=== PATIENT | female | born 1970 | race Hispanic/Latino ===

== ENCOUNTER 2017-11-23 09:35 | Emergency (ER) | payer OTHER ==
[~2017-11-23] VITALS: Ht 167.6 cm; Wt 104.3 kg
[2017-11-23 10:26] LABS: CLARITY,URINE CLOUDY (CLEAR); COLOR,URINE AMBER (YELLOW)
[2017-11-23 10:27] LABS: BILIRUBIN,URINE 1+ (NEGATIVE); KETONES,URINE TRACE (NEGATIVE); LEUKOCYTE ESTERASE ,URINE NEGATIVE (NEGATIVE); NITRITE,URINE NEGATIVE (NEGATIVE); PROTEIN,URINE DIPSTICK 1+ (NEGATIVE); URINE UROBILINOGEN 0.2 mg/dL (0.2 - 1)
[2017-11-23] MEDS ORDERED: MORPHINE SULFATE 4 MG/ML SYR IV STA (10:32)
[2017-11-23] MEDS ORDERED: ONDANSETRON HCL INJ 2 MG/ML VIAL IV STA (10:32)
[2017-11-23] MEDS ORDERED: SODIUM CHLORIDE 0.9% 1000ML 1,000 ML IV STA (10:32)
[2017-11-23 10:38] LABS: BASOPHILS % 0.4 % (0.0-1.0); EOSINOPHILS # (AUTO) 0.1 (0.0-0.4); EOSINOPHILS % 0.6 % (0.0-6.0); HEMATOCRIT 33.7 % (34.2-44.1); LYMPHOCYTES # (AUTO) 2.5 (1.0-3.2); LYMPHOCYTES % 26.2 % (18.0-39.1); MEAN CORPUSCULAR HEMOGLOBIN 27.8 pg (28-32); MEAN CORPUSCULAR HGB CONC 32.6 g/dL (31-35); MEAN CORPUSCULAR VOLUME 85.1 fL (81-99); MONOCYTES # (AUTO) 0.4 (0.2-0.8); MONOCYTES % 4.3 % (4.4-11.3); NEUTROPHILS # (AUTO) 6.6 (2.1-6.9); NEUTROPHILS % 68.3 % (38.7-80.0); PLATELET COUNT 255 x10e3/uL (140-360); RED BLOOD COUNT 3.96 x10e6/uL (3.6-5.1); RED CELL DISTRIBUTION WIDTH 14.1 % (11.7-14.4)
[2017-11-23 10:43] LABS: BACTERIA,URINE RARE /HPF; RBC,URINE 21-50 /HPF (0-5)
[2017-11-23] MEDS ORDERED: CEFTRIAXONE SOD 1 GM VIAL IV SCH (10:45)
[2017-11-23 10:50] LABS: ALANINE AMINOTRANSFERASE 18 IU/L (0-55); ALBUMIN 3.6 g/dL (3.5-5.0); ALKALINE PHOSPHATASE 59 IU/L (40-150); ANION GAP 11.9 mmol/L (8-16); BLOOD UREA NITROGEN 13 mg/dL (7-26); BUN/CREATININE RATIO 13 (6-25); CALCIUM 9.4 mg/dL (8.4-10.2); CARBON DIOXIDE 24 mmol/L (22-29); CHLORIDE 102 mmol/L (98-107); CREATININE, SERUM 0.97 mg/dL (0.57-1.11); EST GLOMERULAR FILTRATION RATE > 60 ML/MIN (60-); GLUCOSE 204 mg/dL (74-118); POTASSIUM 3.9 mmol/L (3.5-5.1); SODIUM 134 mmol/L (136-145)
[2017-11-23 10:54] LABS: EPITHELIAL CELLS,URINE RARE /LPF
[2017-11-23] MEDS ORDERED: MORPHINE SULFATE 2 MG/ML SYR ONE (11:25)
--- NOTE | 2017-11-23 11:52 | Diagnostic Imaging Report ---
PROCEDURE: CT ABDOMEN AND PELVIS WITHOUT CONTRAST TECHNIQUE: The abdomen and pelvis were scanned utilizing a multidetector helical scanner from the diaphragm to the lesser trochanter after the oral administration of water. No intravenous contrast was administered. per referring physician request. Coronal and sagittal multiplanar reformations were obtained. COMPARISON: 11/16/2015. INDICATIONS: Back pain, dizzy FINDINGS: ABSENCE OF INTRAVENOUS CONTRAST DECREASES SENSITIVITY FOR DETECTION OF FOCAL LESIONS AND VASCULAR PATHOLOGY. LOWER THORAX: Normal. HEPATOBILIARY: No focal hepatic lesions. No biliary ductal dilatation. Status post cholecystectomy. SPLEEN: No splenomegaly. PANCREAS: No focal masses or ductal dilatation. ADRENALS: No adrenal nodules. KIDNEYS/URETERS: No hydronephrosis, stones, or solid mass lesions. Multiple ovarian vein phleboliths and pelvic phleboliths. PELVIC ORGANS/BLADDER: Urinary bladder is incompletely distended. Uterus is anteflexed. Cervical nabothian cysts. Left ovarian cyst. PERITONEUM / RETROPERITONEUM: No free air or fluid. LYMPH NODES: No lymphadenopathy. VESSELS: Limited evaluation without intravenous contrast. The abdominal aorta is non-aneurysmal. GI TRACT: Postsurgical changes of Garrett-en-Y gastric bypass without evidence of obstruction. Large bowel shows no distention or wall thickening. Gas and fecal material is noted throughout. Normal appendix. BONES AND SOFT TISSUES: Post surgical changes of the anterior abdominal wall. otherwise no focal soft tissue abnormalities. No osseous destructive lesions. IMPRESSION: No acute intra-abdominal or pelvic CT abnormalities. Dictated by: Renato Oneal M.D. on 11/23/2017 at 11:53 Electronically approved by: Renato Oneal M.D. on 11/23/2017 at 11:53
== END 2017-11-23 13:19 | disposition home or self-care (01) ==
LOC: ER 09:35
DX: R10.9 Unspecified abdominal pain (principal); E11.65 Type 2 diabetes mellitus with hyperglycemia; Z98.84 Bariatric surgery status
CPT/HCPCS: 36415; 74176; 80053; 81001; 81025; 85025; 87086; 99284; J0696; J2270; J2405; J7030

== ENCOUNTER 2017-11-30 19:49 | Inpatient (IN) | payer OTHER ==
[~2017-11-30] VITALS: Ht 167.6 cm; Wt 105.9 kg
--- OUTSIDE RECORDS SUMMARY | 2017-11-30 19:51 | XMS REPORT | Continuity of Care Document ---
Author Author [facility] Organization [facility] Address [address] [place] [address] Phone Unavailable Care Team Providers Care Pharmaceutical Representative Name Role Phone RICKI URBAN MD PCP Insurance Providers Guarantor MoellerJennie santoyo Ce Address [address] [place] [address] Email [email or web address] [email or web address] Policy Number [id number] Subscriber's Name Jennie Moeller Relationship 18 Self / Same As Patient Advance Directives Directive Response Recorded Date/Time Does the patient have an advance directive? No 11/16/15 9:00am If yes, is advance directive on file with [facility]? No 11/16/15 9:00am If not on file with [facility] will patient provide a copy? No 11/16/15 9:00am Do you have a Directive to Physician? No 11/23/17 9:58am Do you have a Medical Power of Contracts Director? No 11/23/17 9:58am Do you have an out of hospital Do Not Resuscitate Order? No 11/23/17 9:58am Do you have any special needs we should be aware of? No 11/23/17 9:58am Do you have a support person here with you today? No 11/23/17 9:58am Did patient receive Notice of Privacy Practices? Yes 11/23/17 9:58am Did patient receive patient rights and responsibilities? Yes 11/23/17 9:58am Problems No problem information available. Medications No medication information available. Social History No social history information available. Hospital Discharge Instructions No hospital discharge instruction information available. Plan of Care Discharge Date 11/23/17 1:19pm Disposition HOME, SELF-CARE Condition at Discharge Stable Instructions/Education Provided Kidney Stones Urinary Tract Infection - Women Forms Provided Work/School Excuse Prescriptions See Medication Section Referrals RICKI URBAN MD Address: [address] [place] [address] JEIMY PARK MD Address: [address] [place] [address] Additional Instructions/Education 1, follow up with urologist in 1-2 days without fail 2. increase oral fluids Functional Status No functional status information available. Allergies, Adverse Reactions, Alerts Allergen Type Severity Reaction Status Last Updated SULFA Allergy Severe swollen with tingly tongue Active 11/23/17 Immunizations No immunization information available. Vital Signs Acute Vital Signs Vital Response Date/Time Height 5 ft 6 in 11/23/2017 9:46am Weight 230 lb 11/23/2017 9:46am Body Mass Index 37.1 kg/m^2 11/23/2017 9:46am Results Laboratory Results Test Name Result Units Flags Reference Collection Date/Time Result Date/ Time Comments White Blood Count 9.59 x10e3/uL 4.8-10.8 11/23/2017 10:15am 11/23/2017 10:40am Red Blood Count 3.96 x10e6/uL 3.6-5.1 11/23/2017 10:15am 11/23/2017 10: 40am Hemoglobin 11.0 g/dL L 12.0-16.0 11/23/2017 10:15am 11/23/2017 10:40am Hematocrit 33.7 % L 34.2-44.1 11/23/2017 10:15am 11/23/2017 10:40am Mean Corpuscular Volume 85.1 fL 81-99 11/23/2017 10:15am 11/23/2017 10: 40am Mean Corpuscular Hemoglobin 27.8 pg L 28-32 11/23/2017 10:2017 10:40am Mean Corpuscular Hemoglobin Concent 32.6 g/dL 31-35 11/23/2017 10:11/23/2017 10:40am Red Cell Distribution Width 14.1 % 11.7-14.4 11/23/2017 10:152017 10:40am Platelet Count 255 x10e3/uL 140-360 11/23/2017 10:am 11/23/2017 10: 40am Neutrophils (%) (Auto) 68.3 % 38.7-80.0 11/23/2017 10:11/23/2017 10:40am Lymphocytes (%) (Auto) 26.2 % 18.0-39.1 11/23/2017 10:11/23/2017 10:40am Monocytes (%) (Auto) 4.3 % L 4.4-11.3 11/23/2017 10:11/23/2017 10: 40am Eosinophils (%) (Auto) 0.6 % 0.0-6.0 11/23/2017 10:am 11/23/2017 10: 40am Basophils (%) (Auto) 0.4 % 0.0-1.0 11/23/2017 10:11/23/2017 10: 40am IM GRANULOCYTES % 0.2 % 0.0-1.0 11/23/2017 10:11/23/2017 10:40am Neutrophils # (Auto) 6.6 2.1-6.9 11/23/2017 10:am 11/23/2017 10: 40am Lymphocytes # (Auto) 2.5 1.0-3.2 11/23/2017 10:11/23/2017 10: 40am Monocytes # (Auto) 0.4 0.2-0.8 11/23/2017 10:11/23/2017 10:40am Eosinophils # (Auto) 0.1 0.0-0.4 11/23/2017 10:11/23/2017 10: 40am Basophils # (Auto) 0.0 0.0-0.1 11/23/2017 10:11/23/2017 10:40am Absolute Immature Granulocyte (auto 0.02 x10e3/uL 0-0.1 11/23/2017 10: 15am 11/23/2017 10:40am Urine Color ALBERT H YELLOW 11/23/2017 9:50am 11/23/2017 10:27am Urine Clarity CLOUDY H CLEAR 11/23/2017 9:50am 11/23/2017 10:27am Urine Specific [place] 1.030 H 1.010-1.025 11/23/2017 9:50am 2017 10:27am Urine pH 5 5 - 7 11/23/2017 9:50am 11/23/2017 10:27am Urine Leukocyte Esterase NEGATIVE NEGATIVE 11/23/2017 9:50am 2017 10:27am Urine Nitrite NEGATIVE NEGATIVE 11/23/2017 9:50am 11/23/2017 10:27am Urine Protein 1+ H NEGATIVE 11/23/2017 9:50am 11/23/2017 10:27am Urine Glucose (UA) NEGATIVE NEGATIVE 11/23/2017 9:50am 11/23/2017 10: 27am Urine Ketones TRACE H NEGATIVE 11/23/2017 9:50am 11/23/2017 10:27am Urine Urobilinogen 0.2 mg/dL 0.2 - 1 11/23/2017 9:50am 11/23/2017 10: 27am Urine Bilirubin 1+ H NEGATIVE 11/23/2017 9:50am 11/23/2017 10:27am Urine Blood 2+ H NEGATIVE 11/23/2017 9:50am 11/23/2017 10:27am Urine WBC NONE /HPF 0-5 11/23/2017 9:50am 11/23/2017 10:43am Urine RBC 21-50 /HPF H 0-5 11/23/2017 9:50am 11/23/2017 10:43am Urine Bacteria RARE /HPF NONE 11/23/2017 9:50am 11/23/2017 10:43am Urine Epithelial Cells RARE /LPF NONE 11/23/2017 9:50am 11/23/2017 10: 54am Urine Hyaline Casts 2-5 H 0-1 11/23/2017 9:50am 11/23/2017 10:43am Urine Test NEGATIVE NEGATIVE 11/23/2017 9:50am 11/23/2017 10:55am Sodium Level 134 mmol/L L 136-145 11/23/2017 10:11/23/2017 10:50am Potassium Level 3.9 mmol/L 3.5-5.1 11/23/2017 10:11/23/2017 10: 50am Chloride Level 102 mmol/L 98-107 11/23/2017 10:11/23/2017 10:50am Carbon Dioxide Level 24 mmol/L 22-29 11/23/2017 10:11/23/2017 10: 50am Anion Gap 11.9 mmol/L 8-16 11/23/2017 10:11/23/2017 10:50am Blood Urea Nitrogen 13 mg/dL 7-11/23/2017 10:11/23/2017 10: 50am Creatinine 0.97 mg/dL 0.57-1.11 11/23/2017 10:11/23/2017 10:50am BUN/Creatinine Ratio 13 6-25 11/23/2017 10:11/23/2017 10:50am Estimat Glomerular Filtration Rate > 60 ML/MIN 60- 11/23/2017 10:11/23/2017 10:50am Ranges were taken from the National Kidney Disease Education Program and the National Kidney Foundation literature. Reference ranges: 60 or greater: Normal 16-59 (for 3 consecutive months): Chronic kidney disease 15 or less: Kidney failure Glucose Level 204 mg/dL H 74-118 11/23/2017 10:11/23/2017 10:50am Calcium Level 9.4 mg/dL 8.4-10.2 11/23/2017 10:11/23/2017 10:50am Total Bilirubin 0.3 mg/dL 0.2-1.2 11/23/2017 10:11/23/2017 10: 50am Aspartate Amino Transf (AST/SGOT) 19 IU/L 5-34 11/23/2017 10:11/23 10:50am Alanine Aminotransferase (ALT/SGPT) 18 IU/L 0-55 11/23/2017 10: 10:50am Total Protein 7.3 g/dL 6.5-8.1 11/23/2017 10:11/23/2017 10:50am Albumin 3.6 g/dL 3.5-5.0 11/23/2017 10:15am 11/23/2017 10:50am Globulin 3.7 g/dL H 2.3-3.5 11/23/2017 10:15am 11/23/2017 10:50am Albumin/Globulin Ratio 1.0 0.8-2.0 11/23/2017 10:15am 11/23/2017 10: 50am Alkaline Phosphatase 59 IU/L 40-150 11/23/2017 10:15am 11/23/2017 10: 50am Procedures Procedure Status Date Provider(s) CT of abdomen and pelvis without contrast Active 11/23/17 SHIRA CRESPO MD Encounters Encounter Location Arrival/Admit Date Discharge/Depart Date Attending Provider Departed Emergency Room [facility] 11/23/17 9:35am 1:19pm SHIRA CRESPO MD
--- OUTSIDE RECORDS SUMMARY | 2017-11-30 19:51 | XMS REPORT ---
Author [facility] Address Unknown Phone Unavailable Care Team Providers Care Tool Distributor Name Role Phone SHIRA CRESPO Unavailable Unavailable Problems This patient has no known problems. Allergies, Adverse Reactions, Alerts This patient has no known allergies or adverse reactions. Medications This patient has no known medications. Results Test Description Test Time Test Comments Text Results Atomic Results Result Comments CT ABDOMEN/PELVIS WO [place] [address] Patient Name: GOGO MOELLER MR #: [id number] : 1970 Age/Sex: 47/F Req # : [id number] Adm Physician: Ordered by: SHIRA CRESPO MD Report #: [id number] Location: ER Room/Bed: Procedure: [id number] CT/CT ABDOMEN/PELVIS WO Exam Date: 11/23/17 Exam Time: 1123 REPORT STATUS: Signed PROCEDURE: CT ABDOMEN AND PELVIS WITHOUT CONTRAST TECHNIQUE: The abdomen and pelvis were scanned utilizing a multidetector helical scanner from the diaphragm to the lesser trochanter after the oral administration of water. No intravenous contrast was administered. per referring physician request. Coronal and sagittal multiplanar reformations were obtained. COMPARISON: 11/16/2015. INDICATIONS: Back pain, dizzy FINDINGS: ABSENCE OF INTRAVENOUS CONTRAST DECREASES SENSITIVITY FOR DETECTION OF FOCAL LESIONS AND VASCULAR PATHOLOGY. LOWER THORAX: Normal. HEPATOBILIARY: No focal hepatic lesions. No biliary ductal dilatation. Status post cholecystectomy. SPLEEN : No splenomegaly. PANCREAS: No focal masses or ductal dilatation. ADRENALS: No adrenal nodules. KIDNEYS/URETERS: No hydronephrosis, stones, or solid mass lesions. Multiple ovarian vein phleboliths and pelvic phleboliths. PELVIC ORGANS/BLADDER: Urinary bladder is incompletely distended. Uterus is anteflexed. Cervical nabothian cysts. Left ovarian cyst. PERITONEUM / RETROPERITONEUM: No free air or fluid. LYMPH NODES: No lymphadenopathy. VESSELS: Limited evaluation without intravenous contrast. The abdominal aorta is non-aneurysmal. GI TRACT: Postsurgical changes of Garrett-en-Y gastric bypass without evidence of obstruction. Large bowel shows no distention or wall thickening. Gas and fecal material is noted throughout. Normal appendix. BONES AND SOFT TISSUES: Post surgical changes of the anterior abdominal wall. otherwise no focal soft tissue abnormalities. No osseous destructive lesions. IMPRESSION: No acute intra-abdominal or pelvic CT abnormalities. Dictated by: Avtar Bojorquez M.D. on 11/23/2017 at 11:53 Electronically approved by: Avtar Bojorquez M.D. on 11/23/2017 at 11:53 Dictated By: AVTAR BOJORQUEZ MD [id number] Transcribed By: MARIAJOSE on 11/23/17 1153 COPY TO: SHIRA CRESPO MD
[2017-11-30] MEDS ORDERED: METHYLPREDNISOLONE SOD SUCC 125 MG/2ML VIAL IV ONE (20:15)
[2017-11-30] MEDS ORDERED: ALBUTEROL/IPRATROPIUM 3 ML NEB NEB ONE (20:15)
[2017-11-30 20:39] LABS: BASOPHILS % 0.6 % (0.0-1.0); EOSINOPHILS # (AUTO) 0.1 (0.0-0.4); EOSINOPHILS % 1.3 % (0.0-6.0); HEMATOCRIT 33.9 % (34.2-44.1); LYMPHOCYTES # (AUTO) 2.9 (1.0-3.2); LYMPHOCYTES % 41.5 % (18.0-39.1); MEAN CORPUSCULAR HEMOGLOBIN 27.8 pg (28-32); MEAN CORPUSCULAR HGB CONC 32.4 g/dL (31-35); MEAN CORPUSCULAR VOLUME 85.8 fL (81-99); MONOCYTES # (AUTO) 0.5 (0.2-0.8); MONOCYTES % 6.8 % (4.4-11.3); NEUTROPHILS # (AUTO) 3.4 (2.1-6.9); NEUTROPHILS % 49.4 % (38.7-80.0); PLATELET COUNT 243 x10e3/uL (140-360); RED BLOOD COUNT 3.95 x10e6/uL (3.6-5.1); RED CELL DISTRIBUTION WIDTH 14.3 % (11.7-14.4)
[2017-11-30 20:56] LABS: ALANINE AMINOTRANSFERASE 12 IU/L (0-55); ALBUMIN 3.6 g/dL (3.5-5.0); ALBUMIN/GLOBULIN RATIO 0.9 (0.8-2.0); ALKALINE PHOSPHATASE 75 IU/L (40-150); ANION GAP 12.4 mmol/L (8-16); BLOOD UREA NITROGEN 14 mg/dL (7-26); BUN/CREATININE RATIO 16 (6-25); CALCIUM 9.6 mg/dL (8.4-10.2); CARBON DIOXIDE 26 mmol/L (22-29); CHLORIDE 104 mmol/L (98-107); EST GLOMERULAR FILTRATION RATE > 60 ML/MIN (60-); GLUCOSE 212 mg/dL (74-118); POTASSIUM 3.4 mmol/L (3.5-5.1); SODIUM 139 mmol/L (136-145)
[2017-11-30] MEDS ORDERED: IOPAMIDOL 370 MG/ML 200 ML INFUS..BTL INJ ONE (21:08)
[2017-11-30] MEDS ORDERED: SODIUM CHLORIDE 0.9% 50ML 50 ML ONE (21:08)
[2017-11-30 21:14] LABS: EOSINOPHILS % (MANUAL) 1 % (0-7); HYPOCHROMASIA SLIGHT; LYMPHOCYTES % (MANUAL) 32 % (19-48); MONOCYTES % (MANUAL) 8 % (3.4-9.0); NEUTROPHILS % (MANUAL) 57 % (40-74); NUCLEATED RED BLOOD CELLS 1; PLATELET ESTIMATE ADEQUATE; PLATELET MORPHOLOGY COMMENT NORMAL; RBC MORPHOLOGY COMMENT NORMAL
--- NOTE | 2017-11-30 21:56 | Diagnostic Imaging Report ---
EXAMINATION: CHEST 2 VIEWS INDICATION: Wheezing. COMPARISON: None FINDINGS: TUBES and LINES: None. LUNGS: Lungs are well inflated. Lungs are clear. There is no evidence of pneumonia or pulmonary edema. PLEURA: No pleural effusion or pneumothorax. HEART AND MEDIASTINUM: The cardiomediastinal silhouette is unremarkable. BONES AND SOFT TISSUES: No acute osseous lesion. Calcification in the distribution of the right rotator cuff compatible with calcific tendinopathy. Soft tissues are unremarkable. UPPER ABDOMEN: No free air under the diaphragm. There are cholecystectomy clips. IMPRESSION: No acute thoracic abnormality. Signed by: Dr. Fran Taveras M.D. on 11/30/2017 9:53 PM
--- NOTE | 2017-11-30 21:59 | Diagnostic Imaging Report ---
ADDENDUM #1 EXAM: CT Chest WITH contrast 11/30/2017 8:10 PM INDICATION: Pulmonary embolism, shortness of breath COMPARISON: None TECHNIQUE: Chest was scanned utilizing a multidetector helical scanner from the lung apex through the level of the adrenal glands without administration of IV contrast. Coronal and sagittal reformations were obtained. Pulmonary embolism protocol was performed. IV CONTRAST: 100 mL of Isovue-370 RADIATION DOSE: Total DLP: 518.01 mGy*cm Estimated effective dose: (DLP x 0.014 x size factor) mSv COMPLICATIONS: None FINDINGS: LINES/ TUBES: None. LUNGS AND AIRWAYS: Patchy nodular and airspace opacities involving the right middle lobe and into a lesser extent the lingula best seen on series 2, or 3 image 52, lung windows . Airways are normal. PLEURA: The pleural spaces are clear. HEART AND MEDIASTINUM: The thyroid gland is normal. No mediastinal, hilar or axillary lymphadenopathy. The heart is normal in size.. There is no pericardial effusion. UPPER ABDOMEN: Postsurgical changes related to cholecystectomy and bariatric surgery BONES: The visualized bony thorax is within normal limits. SOFT TISSUES: Unremarkable. IMPRESSION: 1. NO EVIDENCE OF ACUTE PULMONARY EMBOLISM. 2. Findings are consistent with multifocal infection involving the right middle lobe and lingula. These findings cannot be seen on chest x-ray Signed by: Dr. Fran Taveras M.D. on 12/01/2017 12:58 AM ORIGINAL REPORT EXAM: CT Chest WITH contrast 11/30/2017 8:10 PM INDICATION: Pulmonary embolism, shortness of breath COMPARISON: None TECHNIQUE: Chest was scanned utilizing a multidetector helical scanner from the lung apex through the level of the adrenal glands without administration of IV contrast. Coronal and sagittal reformations were obtained. Pulmonary embolism protocol was performed. IV CONTRAST: 100 mL of Isovue-370 RADIATION DOSE: Total DLP: 518.01 mGy*cm Estimated effective dose: (DLP x 0.014 x size factor) mSv COMPLICATIONS: None FINDINGS: LINES/ TUBES: None. LUNGS AND AIRWAYS: Patchy nodular and airspace opacities involving the right middle lobe and into a lesser extent the lingula best seen on series 2, or 3 image 52, lung windows . Airways are normal. PLEURA: The pleural spaces are clear. HEART AND MEDIASTINUM: The thyroid gland is normal. No mediastinal, hilar or axillary lymphadenopathy. The heart is normal in size.. There is no pericardial effusion. UPPER ABDOMEN: Postsurgical changes related to cholecystectomy and bariatric surgery BONES: The visualized bony thorax is within normal limits. SOFT TISSUES: Unremarkable. IMPRESSION: Findings are consistent with multifocal infection involving the right middle lobe and lingula. These findings cannot be seen on chest x-ray Signed by: Dr. Fran Taveras M.D. on 11/30/2017 9:56 PM
[2017-11-30] MEDS: PIPER-TAZ 3.375 GM 50 ML IV SCH (23:16)
[2017-12-01] MEDS: LEVOFLOXACIN 500MG/D5W 100ML 100 ML IV SCH ×2 (00:23→07:55)
[2017-12-01] MEDS ORDERED: DEXTROSE 50% SYRINGE 50 ML IV PRN (00:45)
[2017-12-01] MEDS: IPRATROPIUM BROMIDE 0.02% 2.5 ML NEB NEB SCH ×4 (00:50→18:40)
[2017-12-01 02:46] VITALS: BP 150/70
[2017-12-01] MEDS: SODIUM CHLORIDE 0.9% 1000ML 1,000 ML IV SCH ×3 (04:08→23:18)
[2017-12-01] MEDS: PIPER-TAZ 3.375 GM 50 ML IV SCH ×4 (05:49→23:18)
[2017-12-01] MEDS ORDERED: JANUVIA100 MG PO (05:52)
[2017-12-01] MEDS ORDERED: GLIPIZIDE5 MG PO (05:52)
[2017-12-01] MEDS: ALBUTEROL SULF 0.083% NEB SOLN 3 ML NEB NEB SCH ×5 (07:00→23:20)
[2017-12-01 07:23] LABS: BASOPHILS % 0.3 % (0.0-1.0); HEMATOCRIT 34.3 % (34.2-44.1); HEMOGLOBIN 11.2 g/dL (12.0-16.0); LYMPHOCYTES # (AUTO) 0.8 (1.0-3.2); LYMPHOCYTES % 8.1 % (18.0-39.1); MEAN CORPUSCULAR HEMOGLOBIN 27.6 pg (28-32); MEAN CORPUSCULAR HGB CONC 32.7 g/dL (31-35); MEAN CORPUSCULAR VOLUME 84.5 fL (81-99); MONOCYTES # (AUTO) 0.1 (0.2-0.8); MONOCYTES % 0.5 % (4.4-11.3); NEUTROPHILS % 90.7 % (38.7-80.0); PLATELET COUNT 254 x10e3/uL (140-360); RED BLOOD COUNT 4.06 x10e6/uL (3.6-5.1)
[2017-12-01 07:58] VITALS: BP 137/63
[2017-12-01 08:00] VITALS: BP 137/63
[2017-12-01 08:10] LABS: BAND NEUTROPHILS % (MANUAL) 2 %; BLAST CELLS % MANUAL 2; LYMPHOCYTES % (MANUAL) 10 % (19-48); NEUTROPHILS % (MANUAL) 84 % (40-74)
[2017-12-01 08:11] LABS: ANISOCYTOSIS SLIGHT; HYPOCHROMASIA SLIGHT; PLATELET ESTIMATE ADEQUATE; PLATELET MORPHOLOGY COMMENT FEW GIANT; RBC MORPHOLOGY COMMENT NORMAL
[2017-12-01] MEDS: INSULIN REGULAR, HUMAN 100 UNIT/1 ML 3ML VIAL SQ SCH ×4 (09:08→21:00)
[2017-12-01] MEDS ORDERED: POTASSIUM CHLORIDE 10 MEQ TABCR PO ONE (09:30)
--- NOTE | 2017-12-01 09:57 | History and Physical ---
She is 47-year-old female patient of mine who presented to the emergency room with complaint of dyspnea, wheezing and cough. HISTORY OF PRESENT ILLNESS: Ms. Jennie Tyler is a 47-year-old female patient with a history of diabetes mellitus, hypertension, hyperlipidemia. She was treated as outpatient at [facility]. The patient was treated for an upper respiratory infection. Patient was treated with Zithromax and ciprofloxacin, but the patient did not improve. The patient had D-dimer test done, which was positive. The patient reported to the emergency room for possible PE, but CT scan of the chest was done in the emergency room and found to have multifocal pneumonia in the right middle lobe and lingula. No acute PE. The patient was subsequently admitted. PAST MEDICAL HISTORY: Bronchitis, diabetes mellitus. PAST SURGICAL HISTORY: , cholecystectomy. Underwent ablation and gastric bypass. ALLERGIES: THE PATIENT IS ALLERGIC TO SULFA. MEDICATIONS: The patient is on glipizide and Januvia. SOCIAL HISTORY: Denies smoking. Denies using alcohol. FAMILY HISTORY: Diabetes mellitus. REVIEW OF SYSTEMS: Cough, shortness of breath, wheezing, productive phlegm. PHYSICAL EXAMINATION VITALS: Temperature 98, pulse rate 88, respirations 24, blood pressure 110/70. HEENT: Normocephalic, atraumatic. NECK: No JVD. LUNGS: Bilateral equal air entry, with rhonchi present and rales present. HEART: S1 and S2 regular. ABDOMEN: Soft. Bowel sounds are present. NEUROLOGIC: No focal neurologic deficit. ADMISSION IMPRESSION 1. Multifocal pneumonia, right middle lobe and lingula pneumonia, community-acquired pneumonia, which has failed outpatient treatment. 2. Diabetes mellitus with hyperglycemia and hypokalemia. PLAN: The patient will be admitted with the above diagnoses. Will treat the patient with IV Zosyn. Give potassium supplement. Pulmonary consultation with Dr. Radha Byers. Will review the CSF. Job#: [id number]
[2017-12-01 12:00] VITALS: BP 134/59
[2017-12-01] MEDS ORDERED: ACETAMINOPHEN 325 MG TAB PO PRN (14:30)
[2017-12-01 16:00] VITALS: BP 141/63
[2017-12-01 19:55] VITALS: BP 112/56
[2017-12-02] VITALS (7 sets, daily range): BP systolic 116–142; BP diastolic 20–76
[2017-12-02] MEDS: ALBUTEROL SULF 0.083% NEB SOLN 3 ML NEB NEB SCH ×6 (04:15→23:45)
[2017-12-02] MEDS: IPRATROPIUM BROMIDE 0.02% 2.5 ML NEB NEB SCH ×5 (04:15→20:20)
[2017-12-02] MEDS: PIPER-TAZ 3.375 GM 50 ML IV SCH ×3 (05:37→17:50)
[2017-12-02] MEDS: SODIUM CHLORIDE 0.9% 1000ML 1,000 ML IV SCH ×2 (05:37→19:54)
[2017-12-02 06:58] LABS: BASOPHILS % 0.1 % (0.0-1.0); EOSINOPHILS % 0.1 % (0.0-6.0); HEMATOCRIT 30.8 % (34.2-44.1); HEMOGLOBIN 9.9 g/dL (12.0-16.0); LYMPHOCYTES # (AUTO) 2.4 (1.0-3.2); LYMPHOCYTES % 27.7 % (18.0-39.1); MEAN CORPUSCULAR HEMOGLOBIN 27.7 pg (28-32); MEAN CORPUSCULAR HGB CONC 32.1 g/dL (31-35); MEAN CORPUSCULAR VOLUME 86.3 fL (81-99); MONOCYTES # (AUTO) 0.4 (0.2-0.8); MONOCYTES % 4.6 % (4.4-11.3); NEUTROPHILS # (AUTO) 5.7 (2.1-6.9); NEUTROPHILS % 67.1 % (38.7-80.0); PLATELET COUNT 231 x10e3/uL (140-360); RED BLOOD COUNT 3.57 x10e6/uL (3.6-5.1); RED CELL DISTRIBUTION WIDTH 14.4 % (11.7-14.4)
[2017-12-02 07:46] LABS: ALANINE AMINOTRANSFERASE 8 IU/L (0-55); ALBUMIN 2.9 g/dL (3.5-5.0); ALBUMIN/GLOBULIN RATIO 0.9 (0.8-2.0); ALKALINE PHOSPHATASE 53 IU/L (40-150); ANION GAP 11.7 mmol/L (8-16); BLOOD UREA NITROGEN 16 mg/dL (7-26); BUN/CREATININE RATIO 19 (6-25); CARBON DIOXIDE 24 mmol/L (22-29); CHLORIDE 109 mmol/L (98-107); CREATININE, SERUM 0.86 mg/dL (0.57-1.11); EST GLOMERULAR FILTRATION RATE > 60 ML/MIN (60-); GLUCOSE 213 mg/dL (74-118); POTASSIUM 3.7 mmol/L (3.5-5.1); SODIUM 141 mmol/L (136-145)
[2017-12-02] MEDS: INSULIN REGULAR, HUMAN 100 UNIT/1 ML 3ML VIAL SQ SCH ×4 (08:08→21:43)
[2017-12-02] MEDS: SITAGLIPTIN 100 MG TAB PO SCH (08:40)
[2017-12-02] MEDS ORDERED: SITAGLIPTIN 100 MG TAB PO SCH (09:00)
[2017-12-02] MEDS ORDERED: GLIPIZIDE 5 MG TAB PO SCH (09:00)
[2017-12-03] VITALS: BP 145/63
[2017-12-03] MEDS: PIPER-TAZ 3.375 GM 50 ML IV SCH ×2 (00:24→05:49)
[2017-12-03] MEDS: ALBUTEROL SULF 0.083% NEB SOLN 3 ML NEB NEB SCH (02:25)
[2017-12-03] MEDS: IPRATROPIUM BROMIDE 0.02% 2.5 ML NEB NEB SCH (02:25)
[2017-12-03] MEDS: SODIUM CHLORIDE 0.9% 1000ML 1,000 ML IV SCH (02:38)
[2017-12-03 04:00] VITALS: BP 110/56
[2017-12-03 06:56] LABS: BASOPHILS % 0.4 % (0.0-1.0); EOSINOPHILS % 0.5 % (0.0-6.0); HEMATOCRIT 29.7 % (34.2-44.1); HEMOGLOBIN 9.4 g/dL (12.0-16.0); MEAN CORPUSCULAR HEMOGLOBIN 27.3 pg (28-32); MEAN CORPUSCULAR HGB CONC 31.6 g/dL (31-35); MEAN CORPUSCULAR VOLUME 86.3 fL (81-99); MONOCYTES # (AUTO) 0.4 (0.2-0.8); MONOCYTES % 4.4 % (4.4-11.3); NEUTROPHILS # (AUTO) 4.5 (2.1-6.9); NEUTROPHILS % 56.3 % (38.7-80.0); PLATELET COUNT 252 x10e3/uL (140-360); RED BLOOD COUNT 3.44 x10e6/uL (3.6-5.1); RED CELL DISTRIBUTION WIDTH 14.8 % (11.7-14.4)
[2017-12-03 07:20] VITALS: BP 138/60
[2017-12-03] MEDS ORDERED: GLIPIZIDE 5 MG TAB PO SCH (07:30)
[2017-12-03 07:45] VITALS: BP 138/60
[2017-12-03] MEDS: INSULIN REGULAR, HUMAN 100 UNIT/1 ML 3ML VIAL SQ SCH (08:42)
[2017-12-03] MEDS: SITAGLIPTIN 100 MG TAB PO SCH (08:42)
--- NOTE | 2017-12-03 09:35 | Consultation ---
DATE OF CONSULTATION: PULMONARY CONSULTATION REQUESTING PHYSICIAN: Dr. Casa Byers. REASON FOR CONSULTATION: Pneumonia. HISTORY OF PRESENT ILLNESS: Ms. Tyler is a 47-year-old woman with history of diabetes, who presents to the hospital with a complaint of cough and chills. She states that she had not had any pulmonary problems prior to this. She was seen at a clinic approximately a week ago for a urinary tract infection and was treated with a course of ciprofloxacin. Just 3 or 4 days ago, she began to develop a worsening cough with some chest congestion and tightness in the chest. She felt chills but did not have any measured fevers. She had 1 episode of sputum that was a little bloody but otherwise has not had a productive cough. She went to the [facility] and had a prescription given for a bronchodilator. She was also treated with a course of azithromycin at that time. She had laboratory testing done at that time that included a D-dimer which was found to be elevated. The clinic told her to come to the emergency department here for a CT angiogram to be done to evaluate for a pulmonary embolus. She states that she has not had any pneumonia or hospitalizations for similar respiratory problems in the past. When she was seen in the emergency department here, she had a chest x-ray done initially that was normal but then underwent a CT angiogram of the chest that showed opacities in the right middle lobe as well as in the lingula. These opacities were concerning for pneumonia. She has been treated with Zosyn and admitted to the hospital. She feels she is actually doing much better over the last 2 days. She does not feel that she is wheezing at present. REVIEW OF SYSTEMS: Review of systems is positive for a cough, chest congestion. She had chills. She had shortness of breath that is improved. She had 1 episode of blood-tinged sputum, but otherwise her cough has been primarily nonproductive. She noticed some bumps on the back of the left leg that have resolved. She has lost some hair on the right arm and around the eyebrows. Otherwise, 12-point review of systems was conducted and was found to be negative. PAST MEDICAL HISTORY: Diabetes. PAST SURGICAL HISTORY 1. Cholecystectomy. 2. . 3. Gastric bypass. FAMILY HISTORY: She reports a history of lung cancer in her father. SOCIAL HISTORY: She is a nonsmoker, does not drink alcohol. ALLERGIES: SHE HAS ALLERGIES LISTED TO SULFA DRUGS. MEDICATIONS: Current medications include Zosyn, albuterol, ipratropium, Januvia, Tylenol, glipizide. PHYSICAL EXAMINATION VITAL SIGNS: Temperature of 98 degrees Fahrenheit, heart rate 72, respiratory rate 20, oxygen saturation 100% on room air, blood pressure 126/76, MAP 93. GENERAL: The patient is standing next to the bed, in no distress. She appears comfortable. EYES: Sclerae are anicteric. Conjunctivae are pink. ENT: No oral lesions. Oral mucosa is moist. NECK: Supple. No cervical lymphadenopathy. CHEST: She has slight rhonchi heard in the right lung base, otherwise clear to auscultation. Normal work of breathing. No wheezing heard. HEART: With regular rate and rhythm, S1/S2, no murmurs. ABDOMEN: Soft, nontender, nondistended. Bowel sounds are normoactive. EXTREMITIES: No edema, no cyanosis, no clubbing. SKIN: No rashes or bruises. NEUROLOGIC: Pupils are equally round and reactive to light. No facial droop. No nystagmus. LABORATORY STUDIES: White blood cell count 8.5, hemoglobin 9.9, platelets 231. Differential of the white blood cells with 67% neutrophils, 27% lymphocytes, 4% monocytes. Sodium level 141, potassium 3.7, chloride 109, bicarbonate 24, creatinine 0.8, glucose 213, protein 6.2. Blood cultures were sent and have no growth after 24 hours. IMAGING: I reviewed the imaging including the CT scan of the chest and chest x-ray from November 30, showing patchy opacities in the right middle lobe and lingula on the CT. There is no evidence of pulmonary embolus. IMPRESSION: Ms. Tyler is a 47-year-old woman with history of diabetes, who presents to the hospital with cough and chills, found to have pneumonia primarily in the right middle lobe but also seen in the lingula. She is currently improving significantly with IV antibiotic therapy. She has blood cultures that have no growth over the last 24 hours. PLAN 1. The patient is currently stable on room air and appears to be recovering well. She has already been on ciprofloxacin and azithromycin recently; so, I would choose a different antibiotic at discharge. We can use an oral third-generation cephalosporin such as cefdinir or cefixime for discharge to complete a course of therapy as she already appears to be improving on a Beta-lactam type antibiotic. 2. Will continue with bronchodilators on an as-needed basis. She does not have any wheezing heard at this time. 3. She will need to continue to work on glucose control to further decrease her risk of infections in the future. Thank you very much for the consultation. We will continue to follow along with you, and please feel free to call with any questions. From my standpoint, the patient can be discharged on oral antibiotics tomorrow if she remains stable as she is today. Job#: [id number]
--- NOTE | 2017-12-03 14:22 | Discharge Summary ---
She is a 47-year-old female patient that presented to the emergency room with the complaint of cough and shortness of breath. Actually, the patient was sent from the [facility] with positive DVT. Positive D-dimer test for ruling out pulmonary embolism. ADMITTING IMPRESSION/DIAGNOSIS: The patient has multifocal right middle lobe and right lingula pneumonia, which was community-acquired pneumonia which had failed outpatient antibiotic treatment with Cipro and Z-Chepe. In the emergency room, CT scan was done, which showed no PE, but multilobar pneumonia. The patient is diabetic with hyperglycemia. HOSPITAL COURSE SUMMARY: The patient was admitted with the above diagnoses. The patient was treated with IV antibiotics of IV Zosyn and given neb treatment. The patient improved significantly. Pulmonary consultation was done with Dr. SEGOVIA. Now, on stabilization the patient will be discharged home on oral antibiotic of Augmentin, and also given bronchodilators of albuterol. The patient was advised to follow up as an outpatient in the next few days or next week. RICKI URBAN MD Job#: [id number] GERMANIA RICHEY
== END 2017-12-03 11:00 | disposition home or self-care (01) | DRG 195 ==
LOC: ER 19:49 → MED/SURG3 12-01 02:04
PROVIDERS: ADMIT Internal Medicine; ATTEND Internal Medicine
DX: J18.9 Pneumonia, unspecified organism (principal); E11.65 Type 2 diabetes mellitus with hyperglycemia; E78.5 Hyperlipidemia, unspecified; E87.6 Hypokalemia; Z88.2 Allergy status to sulfonamides
CPT/HCPCS: 36415; 71046; 71260; 80053; 82948; 84702; 85025; 87040; 93005; 94640; J1956; J2543; J2930; J7030; Q9967

== ENCOUNTER 2019-06-22 15:59 | Emergency (ER) | payer OTHER ==
[~2019-06-22] VITALS: Ht 162.6 cm; Wt 96.6 kg
[~2019-06-22 15:59] MED LIST: GLIPIZIDE5 MG PO; JANUVIA100 MG PO
[2019-06-22] MEDS ORDERED: NAPROSYN500 MG PO (16:31)
[2019-06-22] MEDS ORDERED: CYCLOBENZAPRINE5 MG PO (16:31)
[2019-06-22] MEDS ORDERED: ULTRAM50 MG PO (16:33)
--- NOTE | 2019-06-22 17:25 | Diagnostic Imaging Report ---
EXAMINATION: L SPINE 2-3 VEWS - HOPD INDICATION: Back pain COMPARISON: None FINDINGS: No compression fracture. Vertebral body heights are maintained. Alignment is anatomic. No substantial degenerative change. Surgical chain sutures in the left abdomen. Nonobstructive bowel gas pattern. No free air. IMPRESSION: No compression fracture. Anatomic lumbar spine alignment. Signed by: Kimmy Turcios MD on 06/22/2019 5:22 PM
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
[2019-06-22 18:04] VITALS: BP 167/87
== END 2019-06-22 18:08 | disposition home or self-care (01) ==
LOC: FSED 15:59
DX: S16.1XXA Strain of muscle, fascia and tendon at neck level, initial encounter (principal); S23.3XXA Sprain of ligaments of thoracic spine, initial encounter; S33.5XXA Sprain of ligaments of lumbar spine, initial encounter; M54.12 Radiculopathy, cervical region; S00.83XA Contusion of other part of head, initial encounter; V43.52XA Car driver injured in collision with other type car in traffic accident, initial encounter; Y92.488 Other paved roadways as the place of occurrence of the external cause
CPT/HCPCS: 70450; 72070; 72100; 72125; 99283